=== PATIENT | male | born 1960 | race Two or more races ===

== ENCOUNTER 2019-02-27 17:42 | Emergency (ER) | payer OTHER ==
[~2019-02-27] VITALS: Ht 175.3 cm; Wt 91.0 kg
[2019-02-27] MEDS ORDERED: SODIUM CHLORIDE 0.9% 1,000 ML IV ONE (18:31)
[2019-02-27] MEDS ORDERED: HALOPERIDOL LACTATE 5MG/ML VIAL IM ONE (18:45)
[2019-02-27] MEDS ORDERED: LORAZEPAM 2MG/ML CPJ IV ONE ×2 (18:45)
[2019-02-27 19:13] LABS: CHLORIDE 111 mEq/L (98-107)
[2019-02-27 19:19] LABS: CLARITY URINE CLEAR (CLEAR); COLOR URINE YELLOW (YELLOW); KETONES URINE NEGATIVE (NEGATIVE); LEUKOCYTE ESTERASE URINE NEGATIVE (NEGATIVE); NITRITE URINE NEGATIVE (NEGATIVE); OCCULT BLOOD URINE 1+ (NEGATIVE); PROTEIN URINE NEGATIVE (NEGATIVE); SPECIFIC GRAVITY URINE 1.004 (1.005-1.030); UROBILINOGEN URINE 0.2 E.U./dL (0.2-1.0)
[2019-02-27 19:24] LABS: ETHANOL BLOOD 291 mg/dL
[2019-02-27 19:29] LABS: *AMPHETAMINES SCREEN URINE NEGATIVE (NEGATIVE); *BARBITURATES SCREEN URINE NEGATIVE (NEGATIVE); *BENZODIAZEPINES SCREEN URINE NEGATIVE (NEGATIVE); *COCAINE SCREEN URINE NEGATIVE (NEGATIVE); METHADONE URINE SCREEN NEGATIVE (NEGATIVE); OPIATES URINE SCREEN NEGATIVE (NEGATIVE); PHENCYCLIDINE URINE SCREEN NEGATIVE (NEGATIVE)
[2019-02-27 19:30] LABS: CANNABINOID URINE SCREEN PRESUMTIVE POSITIVE (NEGATIVE)
[2019-02-27 19:52] LABS: BASOPHILS % 0.6 % (0.0-2.0); EOSINOPHILS % 0.1 % (0.0-5.0); HEMATOCRIT. 40.4 % (42.0-52.0); HEMOGLOBIN. 13.6 g/dL (14.0-18.0); LYMPHOCYTES % 18.9 % (20.0-50.0); MEAN CORPUSCULAR HEMOGLOBIN 31.2 pg (28.0-32.0); MEAN CORPUSCULAR VOLUME 92.7 fL (80.0-94.0); MONOCYTES % 10.2 % (2.0-8.0); NEUTROPHILS % 70.2 % (40.0-76.0); PLATELET 339 x1000/uL (130-400); RED BLOOD CELL COUNT 4.36 mill/uL (4.7-6.1); RED CELL DISTRIBUTION WIDTH 14.8 % (11.6-14.6)
[2019-02-28 00:13] VITALS: BP 124/57
== END 2019-02-28 00:13 | disposition home or self-care (01) ==
LOC: ER 17:42
DX: S00.83XA Contusion of other part of head, initial encounter (principal); R45.1 Restlessness and agitation; M43.6 Torticollis; F10.129 Alcohol abuse with intoxication, unspecified; F12.929 Cannabis use, unspecified with intoxication, unspecified; F19.10 Other psychoactive substance abuse, uncomplicated; I49.9 Cardiac arrhythmia, unspecified; Z98.890 Other specified postprocedural states; V49.88XA Car occupant (driver) (passenger) injured in other specified transport accidents, initial encounter; Y93.89 Activity, other specified; Y92.89 Other specified places as the place of occurrence of the external cause; Y99.8 Other external cause status; Y90.8 Blood alcohol level of 240 mg/100 ml or more
CPT/HCPCS: 36415; 70450; 71045; 72125; 80053; 80305; 80320; 81003; 84484; 85025; 93005; 96372; 96374; 99284; J1630; J2060; J7030; G0480